=== PATIENT | female | born 1930 | race Caucasian/White ===

== ENCOUNTER 2017-05-26 11:15 | Day surgery (SDC) | payer MEDICARE, OTHER ==
[~2017-05-26] VITALS: Ht 166.4 cm; Wt 73.1 kg
[2017-05-26 12:23] LABS: BASO # 0.1 (0.0-0.2); BASO % 0.8 % (0.0-2.0); EOS # 0.7 (0.0-0.7); EOS % 8.3 % (0-4.0); GRAN % 56.1 % (42.2-75.2); HEMATOCRIT 39.3 % (37.0-47.0); HEMOGLOBIN 12.3 g/dl (12.5-16.0); LYMPH # 2.4 (1.2-3.4); LYMPH % 27.4 % (20.0-51.0); MEAN CELL VOLUME 94 fl (80.0-100.0); MEAN CORPUSCULAR HEMOGLOBIN 29 pg (27.0-31.0); MEAN CORPUSCULAR HGB CONC 31 g/dl (33.0-37.0); MEAN PLATELET VOLUME 10.3 fl (7.4-10.4); MONO # 0.6 (0.1-0.6); MONO % 7.2 % (1.7-9.3); PLATELET COUNT 292 K/mm3 (130-400); RED BLOOD COUNT 4.19 M/mm3 (4.10-5.30); REDCELL DISTRIBUTION WIDTH-CV 14.6 % (11.5-14.5)
[2017-05-26 12:27] VITALS: BP 171/77; PULSE 60; TEMP 97.1
[2017-05-26] MEDS ORDERED: TOPROL XL 25MG25 MG PO (12:31)
[2017-05-26] MEDS ORDERED: VASOTEC 2.2.5 MG/TAB PO (12:32)
[2017-05-26] MEDS ORDERED: VITAMIN B COMPL1 SGL PO (12:33)
[2017-05-26] MEDS ORDERED: ASPIRIN E.C. 8181 MG PO (12:33)
[2017-05-26] MEDS ORDERED: GLUCOSAMINE, CH1 TAB PO (12:34)
[2017-05-26] MEDS ORDERED: HAIRSKINNAILS PO (12:35)
[2017-05-26] MEDS ORDERED: LUTEIN20 M1 PO (12:35)
[2017-05-26 15:50] VITALS: BP 145/51; PULSE 61; TEMP 97.2
[2017-05-26 16:10] VITALS: BP 162/58; PULSE 69
[2017-05-26 16:25] VITALS: BP 164/49; PULSE 62
[2017-05-26 18:41] VITALS: BP 148/63; PULSE 63; TEMP 97.6
== END 2017-05-26 17:16 | disposition home or self-care (01) ==
LOC: SDCO 11:15
PROVIDERS: Urology
DX: N28.89 Other specified disorders of kidney and ureter (principal); R31.0 Gross hematuria; I25.10 Atherosclerotic heart disease of native coronary artery without angina pectoris; I10 Essential (primary) hypertension; D64.9 Anemia, unspecified; Z88.8 Allergy status to other drugs, medicaments and biological substances; Z79.82 Long term (current) use of aspirin; Z87.891 Personal history of nicotine dependence; Z68.26 Body mass index [BMI] 26.0-26.9, adult
CPT/HCPCS: C1769; J0690; J1100; J2405; J2704; J3010; J7120; Q9967

== ENCOUNTER 2017-06-03 09:55 | Inpatient (IN) | payer MEDICARE, OTHER ==
[~2017-06-03] VITALS: Ht 165.1 cm; Wt 74.5 kg
[~2017-06-03 09:55] MED LIST: ASPIRIN E.C. 8181 MG PO; GLUCOSAMINE, CH1 TAB PO; HAIRSKINNAILS PO; LUTEIN20 M1 PO; TOPROL XL 25MG25 MG PO; VASOTEC 2.2.5 MG/TAB PO; VITAMIN B COMPL1 SGL PO
[2017-06-17] VITALS (10 sets, daily range): BP systolic 125–176; BP diastolic 41–72; PULSE 58–75; TEMP 98.1–98.4
[2017-06-17 08:14] LABS: CALCIUM 9.7 mg/dL (8.4-10.2); CREATININE, serum 1.04 mg/dL (0.52-1.25); POTASSIUM 4.1 mmol/L (3.4-5.0)
[2017-06-18] VITALS (7 sets, daily range): BP systolic 124–158; BP diastolic 38–56; PULSE 54–73; TEMP 97.4–97.8
[2017-06-18 06:43] LABS: BASO % 0.2 % (0.0-2.0); GRAN # 10.1 (1.4-6.5); GRAN % 81.8 % (42.2-75.2); LYMPH # 1.2 (1.2-3.4); LYMPH % 9.3 % (20.0-51.0); MEAN CELL VOLUME 94 fl (80.0-100.0); MEAN CORPUSCULAR HGB CONC 31 g/dl (33.0-37.0); MEAN PLATELET VOLUME 10.8 fl (7.4-10.4); MONO % 8.1 % (1.7-9.3); PLATELET COUNT 243 K/mm3 (130-400); REDCELL DISTRIBUTION WIDTH-CV 14.3 % (11.5-14.5)
[2017-06-18 06:44] LABS: HEMATOCRIT 30.1 % (37.0-47.0); HEMOGLOBIN 9.3 g/dl (12.5-16.0); MEAN CORPUSCULAR HEMOGLOBIN 29 pg (27.0-31.0)
[2017-06-18 06:57] LABS: CALCIUM 8.7 mg/dL (8.4-10.2); CREATININE, serum 1.77 mg/dL (0.52-1.25); POTASSIUM 5.1 mmol/L (3.4-5.0)
[2017-06-19 01:37] VITALS: BP 130/49; PULSE 55; TEMP 98.2
[2017-06-19 05:19] VITALS: BP 152/50; PULSE 65; TEMP 97.5
[2017-06-19 07:47] LABS: MEAN CELL VOLUME 95 fl (80.0-100.0); MEAN CORPUSCULAR HGB CONC 31 g/dl (33.0-37.0); MEAN PLATELET VOLUME 10.8 fl (7.4-10.4); PLATELET COUNT 216 K/mm3 (130-400); RED BLOOD COUNT 2.94 M/mm3 (4.10-5.30); REDCELL DISTRIBUTION WIDTH-CV 14.4 % (11.5-14.5)
[2017-06-19 07:59] LABS: CALCIUM 8.5 mg/dL (8.4-10.2); CREATININE, serum 2.17 mg/dL (0.52-1.25); POTASSIUM 5.2 mmol/L (3.4-5.0)
[2017-06-19 08:05] LABS: HEMOGLOBIN 8.6 g/dl (12.5-16.0); MEAN CORPUSCULAR HEMOGLOBIN 29 pg (27.0-31.0)
[2017-06-19 10:18] VITALS: BP 157/66; PULSE 65; TEMP 98.3
[2017-06-19 13:46] VITALS: BP 141/47; PULSE 64; TEMP 98.2
[2017-06-19 17:22] VITALS: BP 140/55; PULSE 60; TEMP 97.2
[2017-06-19 21:59] VITALS: BP 165/53; PULSE 63; TEMP 98.3
[2017-06-20 01:23] VITALS: BP 152/58; PULSE 64; TEMP 98.2
[2017-06-20 04:38] VITALS: BP 168/56; PULSE 64; TEMP 97.6
[2017-06-20 09:37] VITALS: BP 185/59; PULSE 65; TEMP 97.6
[2017-06-20 11:52] VITALS: BP 178/58; PULSE 60
[2017-06-20 13:52] VITALS: BP 189/62; PULSE 57; TEMP 97.9
[2017-06-20 15:45] VITALS: BP 176/66
== END 2017-06-20 15:45 | disposition home or self-care (01) | DRG 657 ==
LOC: INPTSU 06-17 07:18 → SURG 06-17 07:18
PROVIDERS: Nurse Anesthetist, Certified Registered; Urology
PROC: 0TB64ZZ Excision of Right Ureter, Percutaneous Endoscopic Approach (ICD-10-PCS; 2017-06-17)
PROC: 8E0W4CZ Robotic Assisted Procedure of Trunk Region, Percutaneous Endoscopic Approach (ICD-10-PCS; 2017-06-17)
PROC: 0TT04ZZ Resection of Right Kidney, Percutaneous Endoscopic Approach (ICD-10-PCS; principal; 2017-06-17 09:30)
DX: C65.1 Malignant neoplasm of right renal pelvis (principal); I42.9 Cardiomyopathy, unspecified; I25.10 Atherosclerotic heart disease of native coronary artery without angina pectoris; I10 Essential (primary) hypertension
CPT/HCPCS: A4314; A9284; J0360; J0690; J1100; J1644; J2405; J2704; J2710; J3010; J7120; J9280

== ENCOUNTER → 2017-06-24 | Outpatient (CLI) | payer MEDICARE, OTHER | LOC: COL.RAD 07:32 | DX: C65.1 Malignant neoplasm of right renal pelvis (principal); Q62.5 Duplication of ureter | CPT/HCPCS: Q9967 ==